=== PATIENT | female | born 1995 | race Hispanic/Latino ===

== ENCOUNTER 2023-01-09 08:34 | Emergency (ER) | payer OTHER, SELFPAY ==
[2023-01-09] MEDS ORDERED: Clindamycin/D5W 900 mg/50 ml Premix Bag ONE (08:49)
[2023-01-09] MEDS ORDERED: Dexamethasone 10 MG/ML VIAL ONE (08:49)
[2023-01-09] MEDS ORDERED: Ketorolac Tromethamine 30 MG/ML VIAL ONE (08:49)
== END 2023-01-09 09:31 | disposition home or self-care (01) ==
LOC: BURERS 08:34
DX: K04.7 Periapical abscess without sinus (principal)
CPT/HCPCS: 96374; 96375; J1100; J1885; J3490